=== PATIENT | female | born 1935 | race Caucasian/White ===

== ENCOUNTER 2016-10-04 18:38 | Inpatient (IN) | payer MEDICARE, OTHER ==
--- NOTE | ~2016-10-04 | DS ---
Discharge Summary [facility] [address] [place]. [address] NAME: FÉLIX PORTER : 34 STATUS : DIS IN PAT#: [id number] AGE: 81 ADM/REG DATE : 10/05/16 MR#: [id number] REPORT SERV DATE: 10/15/16 DICTATED BY: VINAY DICKINSON DATE: 10/14/16 REPORT STATUS : Draft TRANSCRIBED BY: MODL DATE: 10/14/16 ADMISSION DATE: 10/05/2016 DISCHARGE DATE: 10/14/2016 HOSPITAL COURSE: This is an 81-year-old female with known history of nonischemic cardiomyopathy, LVEF is now thought to be 45%; known history of nonobstructive CAD, defibrillator placed; hypertension; aortic stenosis; hyperlipidemia; history of subdural hematoma; and chronic anemia. The patient comes in not doing well for four days. Came in with prior to admission chest pain, palpitations, volume overload, BNP was 1100. The patient initially was on Vapotherm and was diuresed, Cardiology was consulted as a result. Seemed to have chronic hyponatremia, baseline is about 128. Noted to have progressive decline in functional status, hyponatremia, elevated BNP, and anemia. She, as a result, is seen regarding her chest pain to be left-sided, no pleurisy. Did well with euvolemia for IV diuresis. Her diuretics were held given increasingly hyponatremic. Urine sodium osmolality suggested SIADH. She is on 1.1 L fluid restriction by Nephrology. She was seen to have left retrocardiac infiltrate, procalcitonin is normal, do not suggest any infection. The patient clinically does not seem to have any pneumonia. 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 As a result, I will get a CT of the chest in four weeks to ensure the infiltrate in the retrocardiac region has resolved. She was seen by Dr. 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 The patient is now at baseline hyponatremia, a bit above her previous baseline of 133, likely had worsened hyponatremia due to volume overload from heart failure. As a result, would encourage the patient to discontinue medications that may cause iatrogenic SIADH. Pursue the CT of the chest, rule out for any lung-associated SIADH. Consider possible emphysema workup with pulmonary function test for the PCP. DISCHARGE MEDICATIONS: Will be Eliquis 5 p.o. b.i.d.; amiodarone 200 p.o. daily and 100 p.o. at bedtime; BuSpar 5 p.o. b.i.d.; carvedilol 25 p.o. b.i.d.; irbesartan 150 p.o. daily; Ativan 1 mg p.o. at bedtime, we will try to wean that down as an outpatient given addiction potential; magnesium oxide 400 p.o. daily; multivitamin one tablet p.o. daily; Megace 400 p.o. daily, this was given for appetite suppression issues initially; as well as KCl 10 mEq p.o. daily; Lasix 20 p.o. daily p.r.n. only for swelling given the risk of hyponatremia; artificial tears; and stop the Norvasc at home. CONSULTS: The patient had Cardiology, Nephrology, and Dr. Paz. Was evaluated for generalized anxiety disorder, obsessive-compulsive features. DISCHARGE DIAGNOSES: 1. Acute on chronic hyponatremia, likely due to syndrome of inappropriate antidiuretic hormone, contribution due to volume overload. 2. Nonischemic cardiomyopathy, acute on chronic heart failure, LVEF 45%, maximized on carvedilol and irbesartan at this point, fluid restriction. Discharge Summary [address] [address] NAME: FÉLIX PORTER : 34 STATUS : DIS IN PAT#: [id number] AGE: 81 ADM/REG DATE : 10/05/16 MR#: [id number] REPORT SERV DATE: 10/15/16 DICTATED BY: VINAY DICKINSON DATE: 10/14/16 REPORT STATUS : Draft TRANSCRIBED BY: HAMZAH DATE: 10/14/16 3. History of aortic stenosis. 4. Nonobstructive coronary artery disease. 5. Hypertension. All questions were answered, took well over 30 minutes to do. CHUN/HAMZAH Vinay Dickinson DO / [id number] CC: DO Laura Lamb D.O.
--- NOTE | ~2016-10-04 | CN ---
Consultation Report [facility] [address] [place]. [address] NAME: FÉLIX PORTER : 34 STATUS : ADM IN PAT#: [id number] AGE: 81 ADM/REG DATE : 10/05/16 MR#: [id number] REPORT SERV DATE: 10/05/16 DICTATED BY: ROBINSON OSBORNE DATE: 10/05/16 REPORT STATUS : Draft TRANSCRIBED BY: HAMZAH DATE: 10/05/16 CARDIOLOGY CONSULTATION DATE OF CONSULTATION: INDICATION: Fatigue, malaise, hyponatremia, diastolic heart failure. 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 She has persistent atrial fibrillation, hypertension, and a previous questionable subdural hematoma in 01/2016. She states she recently ended up in [facility] due to hospital bed availability issues, and she has recently been at the [facility] for rehabilitation. She states for the past several days, she has had increasing palpitations with breathlessness. She has had some atypical chest discomfort. At this time, she is relatively comfortable, but has significant laboratory abnormalities including a sodium of 127 and a BNP of 1155. CURRENT HOME MEDICATIONS: Amiodarone 200 in the morning, 100 in the evening; Norvasc 5 per day; Apixaban 5 b.i.d.; carvedilol 25 b.i.d.; clonidine 0.1 b.i.d.; furosemide 20 per day; irbesartan 150 per day; lorazepam 0.5 at bedtime; Mag-Ox 400 per day; multivitamins daily; potassium 20 per day. ALLERGIES OR INTOLERANCES: Penicillins. SOCIAL HISTORY: Negative for alcohol or tobacco use. FAMILY HISTORY: Negative for coronary artery disease at a young age. PAST MEDICAL HISTORY/REVIEW OF SYSTEMS: She has essential primary hypertension, hyperlipidemia. She has atherosclerosis of the [place] coronary arteries, but has not had angina in the past. She has mild aortic insufficiency, tricuspid regurgitation, as well as mild aortic sclerosis. These are nonrheumatic. She has a persistent atrial fibrillation, which has been well controlled on amiodarone. PHYSICAL EXAMINATION: GENERAL: An 81-year-old white female who is presently comfortable. VITAL SIGNS: Blood pressure 150/71, pulse 104 and regular, respirations 24. SKIN: No xanthelasmas. HEENT: She is normocephalic. There is no pallor. Sclerae white. NECK: JVD is not elevated. CHEST: There is more moderate kyphosis. There are no crackles. Consultation Report [place] [address] [facility] [place] [address] NAME: FÉLIX PORTER : 34 STATUS : ADM IN [facility]#: [id number] AGE: 81 ADM/REG DATE : 10/05/16 MR#: [id number] REPORT SERV DATE: 10/05/16 DICTATED BY: ROBINSON OSBORNE DATE: 10/05/16 REPORT STATUS : Draft TRANSCRIBED BY: HAMZAH DATE: 10/05/16 CARDIAC: PMI is not displaced. There is an S4. There is a 1/6 systolic ejection murmur. ABDOMEN: Soft. EXTREMITIES: Without edema. No clubbing. NEUROLOGIC: No focal deficits. LABORATORY DATA: Initial sodium 127, she has trended downward; in July, her sodium was in the upper 120s. Potassium 4.2, BUN 18, creatinine 0.65, magnesium 2, glucose 139. Cardiac enzymes negative. BNP 1155 compared to 264 in July of this year. White count 6.8; hemoglobin 9, which is down from 11.5 to 12 earlier this year. INR 1.4. IMPRESSION: Progressive decline in functional status with hyponatremia, elevated BNP, and an anemia. We will check her for any GI blood loss. May have to do further evaluation of her hyponatremia. MICAELA/HAMZAH Robinson Osborne M.D. / [id number] CC: Alton Beard Jr, MD
--- NOTE | ~2016-10-04 | HP ---
History And Physical [facility] [address] [place]. [address] NAME: FÉLIX GONZALEZ : 34 STATUS : ADM Ifrah PAT#: [id number] AGE: 81 ADM/REG DATE : 10/04/16 MR#: [id number] REPORT SERV DATE: 10/05/16 DICTATED BY: ARTEM PIMENTEL DATE: 10/05/16 REPORT STATUS : Draft TRANSCRIBED BY: MODL DATE: 10/05/16 DATE OF ADMISSION: 10/04/2016 CHIEF COMPLAINT: Chest pain, palpitations, and panic. HISTORY OF PRESENT ILLNESS: This is an 81-year-old female, who presents to the emergency room at [facility] with the above-mentioned complaint. History is obtained from the patient and reviewing data available on the [employer] system. According to Mrs. Gonzalez, she has been not doing well for about three to four days now with having chest pains and palpitations and panic when she tries to sleep or go to bed. Chest pain is mainly left-sided, 5/10 without any aggravating or relieving factors. She has no pleuritic pain. She denied any nausea, vomiting, or diaphoresis associated with this. No radiation. The pain usually lasts less than one minute. She finally decided to come to the emergency room to be evaluated. In the emergency room, initial workup revealed volume overload with nonischemic cardiomyopathy and chronic anemia as well. Hospitalist Service is asked to admit her for further evaluation and treatment. At the time of my evaluation, she denied any chest pain. She had no palpitations or orthopnea. She had no cough, hemoptysis, night sweats, or weight loss. She denied any recent falls or loss of consciousness. She has not had any recent fevers, chills, nausea, vomiting, or diarrhea. No other history of recent hematemesis, hematochezia, or hematuria. No dysuria. No other history of recent travel or exposures either. PAST MEDICAL HISTORY: Significant for nonischemic cardiomyopathy with preserved LV function, nonobstructive coronary artery disease. She also has a defibrillator placed. She has hypertension, aortic stenosis, hyperlipidemia, and history of subdural hematoma as well. She has chronic anemia as well. SOCIAL HISTORY: She does not smoke, drink, or use recreational drugs. She used to work in a [employer]. FAMILY HISTORY: Noncontributory. MEDICATIONS AT HOME: Reviewed by me in the chart today and reordered by me. REVIEW OF SYSTEMS: As in history of present illness. All other systems were reviewed in detail and are quite unremarkable. PHYSICAL EXAMINATION: GENERAL: This is a very pleasant 81-year-old, not in any acute distress. HEENT: Her head is atraumatic, normocephalic. She is alert, awake, oriented to time, place, and person. Her pupils are equal, reacting to light and accommodating. External ocular History And Physical [address] [place]. [address] NAME: FÉLIX GONZALEZ : 34 STATUS : ADM Ifrah PAT#: [id number] AGE: 81 ADM/REG DATE : 10/04/16 MR#: [id number] REPORT SERV DATE: 10/05/16 DICTATED BY: ARTEM PIMENTEL DATE: 10/05/16 REPORT STATUS : Draft TRANSCRIBED BY: HAMZAH DATE: 10/05/16 muscles are intact. Membranes are moist and pink. Sclerae are nonicteric. NECK: Supple with no jugular venous distention, lymphadenopathy, or thyromegaly. LUNGS: Auscultation of her lungs revealed decreased air entry bilaterally with bilateral crackles. No expiratory wheezes. Trachea appeared to be in midline. HEART: Auscultation of her heart revealed normal rate and rhythm with no murmurs, rubs, or gallops appreciated. ABDOMEN: Soft, nontender. Bowel sounds are present. EXTREMITIES: Showed no cyanosis, clubbing, or edema. NEUROLOGIC: Grossly intact. No focal deficits. She was able to move all four extremities. Higher functions appeared intact. VITAL SIGNS: Her temperature today upon arrival was 98.3, pulse was 103, respirations 24, and blood pressure upon arrival was 149/77. Oxygen saturations were 94%, requiring 8 L flow via Vapotherm. LABORATORY DATA: Reviewed by me on the [facility] today and she had an arterial blood gas showing a pH of 7.46, pCO2 was 34, PaO2 50, and bicarbonate was 23.4. This was on 4 L of oxygen. A CMP showed sodium of 127, potassium 3.8, chloride 89, and CO2 of 25. BUN was 19 with creatinine of 0.53 and blood glucose was 104. Her troponin was 0.02 today and BNP was elevated at 1155. CBC showed a white blood cell count of 10,300, hemoglobin was 9.7, hematocrit 28.2, and platelet count was 406,000. Her prothrombin time was 17.4 with an INR of 1.4 today. Urinalysis was grossly unremarkable. Films of the chest x-ray were reviewed by me on the PACS today and interpreted by me. Per my interpretation, there are bilateral pulmonary edema with left-sided effusion and compressive atelectasis as well. She has a left-sided ICD placed as well. Twelve-lead EKG done in the emergency room was reviewed and interpreted by me. There is ventricular paced rhythm. IMPRESSION: 1. Chest pain. 2. Hypoxemia. 3. Volume overload. 4. Nonischemic cardiomyopathy with preserved left ventricular function. 5. Nonobstructive coronary artery disease. 6. SECOND HELPER-D. 7. Hypertension. 8. Aortic stenosis. 9. Chronic anemia. 10.Hyperlipidemia. PLAN: We will admit Mrs. Gonzalez to the Hospitalist Service with cardiac telemetry for a 24- hour observation period. We will start her on IV diuretics for 24 hours and get an echocardiogram. We will consult Cardiology Service to see her as well. Meanwhile, we will go ahead and get TSH level follow serial troponins as well. She is on carvedilol, amiodarone, Eliquis, and clonidine, which will be continuing with the rest of her medications. We will also leave her on the Vapotherm 8 L per minute for now. Diurese her and then continue to titrate her FiO2 down as tolerated. Please see today's orders for all the details. I have discussed the above plans with the patient. Her questions were answered and she is agreeable to the above recommendations. History And Physical [address] [place]. [address] NAME: FÉLIX GONZALEZ : 34 STATUS : ADM Ifrah PAT#: [id number] AGE: 81 ADM/REG DATE : 10/04/16 MR#: [id number] REPORT SERV DATE: 10/05/16 DICTATED BY: ARTEM PIMENTEL DATE: 10/05/16 REPORT STATUS : Draft TRANSCRIBED BY: HAMZAH DATE: 10/05/16 Hospitalist Service will be following her during her stay here. MR/HAMZAH Artem Pimentel M.D. / [id number] CC: Alton Beard Jr, MD
--- NOTE | ~2016-10-04 | CN ---
Consultation Report [facility] [address] [place]. [address] NAME: FÉLIX PORTER : 34 STATUS : ADM IN PAT#: [id number] AGE: 81 ADM/REG DATE : 10/05/16 MR#: [id number] REPORT SERV DATE: 10/09/16 DICTATED BY: DATE: REPORT STATUS : Draft TRANSCRIBED BY: MODL DATE: 10/08/16 CONSULTATION DATE OF CONSULTATION: REASON FOR CONSULTATION: Hyponatremia. HISTORY OF PRESENT ILLNESS: This is a fairly pleasant 81-year-old female patient, who was initially admitted to the Hospitalist Service with volume overload, shortness of breath, anxiety, and chest pain. She was seen in consultation by Cardiology Services, we will follow the patient during this hospitalization as she stabilizes. She continued to show difficulty with hyponatremia. She was initially provided fluid restriction and IV diuresis and presented with much of a SIADH picture; however, has had persistent hyponatremia in previous hospitalizations, not here at [facility]. The patient has required dosing of Samsca by our service noted early in July 2016. Baseline sodium continues to be volatile and is at 125 this afternoon. She presents with no symptomatology related to hyponatremia; however, she is known to have a rather flat affect. The patient is lying in bed this afternoon. Awake, alert, and oriented. Denies current chest pain. No nausea, vomiting, or diarrhea. PAST MEDICAL HISTORY: Positive for chronic hyponatremia, nonischemic cardiomyopathy with last known ejection fraction 07/27/2016 with demonstrated preserved left ventricular systolic function. Also known to have nonobstructive coronary artery disease, history of MAIL PROCESSING CLERK-D, hypertension, persistent atrial fibrillation with CHADS-VASc score 4, aortic sclerosis, history of subdural hematoma, hyperlipidemia, and chronic anemia. REVIEW OF SYSTEMS: Completed. Please see HPI for pertinent details. SOCIAL HISTORY: No ETOH. No illicit drugs. No tobacco. FAMILY HISTORY: Noncontributory and not reviewed during this consultation and dictation. ALLERGIES: SHE LISTS ALLERGIES TO PENICILLIN, ACTIVELY ON CORDARONE, NORVASC, ELIQUIS, COREG, CATAPRES, AVAPRO, ATIVAN, MAG-OX, TABLETS, POTASSIUM CHLORIDE, ZOLOFT, AND ANTIEMETIC, ANTIPAIN, AND ANTI-NAUSEA MEDICATION. PHYSICAL EXAMINATION: VITAL SIGNS: Blood pressure 169/56, temperature 97.1, respiratory rate 18, heart rate is 78 beats per minute. GENERAL: She is a very flat affect female patient, lying in bed during evaluation, in no acute distress. HEENT: Normocephalic and atraumatic. Normal ocular movements. No scleral icterus. No conjunctival pallor is appreciated. Consultation Report [address] [place]. [address] NAME: FÉLIX PORTER : 34 STATUS : ADM IN [facility]#: [id number] AGE: 81 ADM/REG DATE : 10/05/16 MR#: [id number] REPORT SERV DATE: 10/09/16 DICTATED BY: DATE: REPORT STATUS : Draft TRANSCRIBED BY: MODJosh DATE: 10/08/16 NECK: Supple without thyromegaly. No JVD or mass. CHEST: Shows positive S1 and S2. No rubs or gallops. LUNGS: Diminished but clear to auscultation throughout. Normal expansion and effort bilaterally. GI: Shows positive bowel sounds in all four quadrants. No appreciable mass or tenderness. : Deferred. EXTREMITIES: Show positive pulses. No clubbing, cyanosis, or edema. SKIN: Warm, dry, and intact to visualized surfaces. No rash, lesions, or ecchymosis. NEUROLOGIC: She appears to be grossly intact. Nonfocal. She is of a flat affect and she is of appropriate however. LABORATORY DATA: Pertinent laboratories and imaging to this evaluation, electrolyte profile: Sodium 125, potassium 4.2, chloride 92, CO2 of 27, BUN 18, creatinine 0.55, reflected GFR 87 mL per minute, glucose 101, calcium 8.3, serum osmolality 264. Urine osmolality and urine sodium at 545 and 28 respectively. IMPRESSION AND PLAN: This is an 81-year-old female patient, admitted with complaints as listed above in HPI with persistent hyponatremia with fluid restrictions in place with aggressive diuresis on entry with pattern of volume overload. Overall, the patient appears to be somewhat dry and does not exhibit pattern of overload. She was recently initiated on Zoloft by Dr. Jake Paz during this inpatient stay. This along with other factors including her tendency toward chronic hyponatremia may be precipitating a worsening hyponatremia currently. We would advise at this point to continue her fluid restrictions in place, place her at 1100 mL fluid restriction daily. Repeat her portable chest x-ray to assess her fluid status as she was volume overloaded on entry and repeat urine sodium and other studies. Would consider dosing of Samsca if the patient continues to present with hyponatremia if all other factors are mitigated. Follow along with serial laboratories strict I's and Os daily weights and modify treatment plan based on clinical presentation, the patient laboratory results, further consultation with renal attending. We appreciate consultation. We are glad to follow. /HAMZAH Rajan Jones NP / [id number] CC: Alton Beard Jr, MD Ivey Williamson, M.D.
--- NOTE | ~2016-10-04 | CN ---
Consultation Report [facility] [address] [place]. [address] NAME: FÉLIX PORTER : 34 STATUS : ADM IN PAT#: [id number] AGE: 81 ADM/REG DATE : 10/05/16 MR#: [id number] REPORT SERV DATE: 10/06/16 DICTATED BY: JAKE LANE DATE: 10/06/16 REPORT STATUS : Draft TRANSCRIBED BY: MODL DATE: 10/06/16 PSYCHIATRIC CONSULTATION DATE OF CONSULTATION: 10/06/2016 I reviewed the patient's old and current medical record. I discussed the patient's status with Dr. Beard. I discussed the patient's history with her son who was at the bedside. HISTORY OF PRESENT ILLNESS: She was admitted with chest pain, palpitations, and feelings of panic, on and off for a few days and mainly occurring when she tried to go to bed and go to sleep. She reports that she has had very little sleep in recent days. PAST PSYCHIATRIC HISTORY: She was always an anxious worrier. She always was anxiety driven and somewhat hyperactive. She also had some compulsive traits especially to her cleaning and general house keeping. She said she has had a problem with mixed insomnia for years but this really became problematic only in recent months. She took Ambien, with some, inconsistent benefit. Subsequently, she had a trial on Desyrel which caused confusion and misperceptions. Next, she was put on Ativan 0.5 mg at bedtime and this was the most beneficial medication but it was not consistently so. FAMILY HISTORY: No psychiatric illness. SOCIAL HISTORY: She has been for a number of years. She lives alone. MENTAL STATUS: She was awake and alert. She made only brief eye contact. Her mood was anxious and somewhat angry. Her affect was appropriate. She was obsessing about her need for sleep and for getting some medication right now to remedy this. Her thinking was logical. She had no delusions. She had no hallucinations. She was oriented to time, place, and person. DIAGNOSIS: Generalized anxiety disorder, with obsessive-compulsive features. RECOMMENDATIONS: I will start her on Ativan 1 mg p.o. at bedtime and Zoloft 25 mg p.o. daily. I will follow during this hospitalization. JOSIAS/HAMZAH Jake Lane M.D. / [id number] Consultation Report [place] [address] [place]. [address] NAME: FÉLIX PORTER : 34 STATUS : ADM IN PAT#: [id number] AGE: 81 ADM/REG DATE : 10/05/16 MR#: [id number] REPORT SERV DATE: 10/06/16 DICTATED BY: JAKE LANE DATE: 10/06/16 REPORT STATUS : Draft TRANSCRIBED BY: MODL DATE: 10/06/16 CC: Alton Beard Jr, MD Selma Acevedo M.D.
--- NOTE | ~2016-10-04 | IDS ---
Interim Discharge Summary [facility] [address] [place]. [address] NAME: FÉLIX PORTER : 34 STATUS : ADM IN PAT#: [id number] AGE: 81 ADM/REG DATE : 10/05/16 MR#: [id number] REPORT SERV DATE: 10/09/16 DICTATED BY: JR. BEARD WILLIAM JOHN DATE: 10/09/16 REPORT STATUS : Draft TRANSCRIBED BY: MODJosh DATE: 10/09/16 ADMISSION DATE: 10/05/2016 DISCHARGE DATE: Date of summary is 10/09/2016. This summary covers the time period from 10/05/2016 through 10/09/2016. WORKING DIAGNOSIS: Include 1. Acute versus acute on chronic hyponatremia likely secondary to syndrome of inappropriate antidiuretic hormone. 2. Fluid overload. 3. Generalized anxiety with obsessive-compulsive features. 4. Nonischemic cardiomyopathy with ejection fraction 45%. 5. Nonobstructive coronary artery disease. 6. Hypertension. 7. History of aortic stenosis. 8. Deconditioning. 9. Left retrocardiac infiltrate, infectious versus fluid. OPERATIONS, PROCEDURES, AND TREATMENTS: Include 1. Chest x-ray done 10/04/2016, which showed severe diffuse bilateral pulmonary infiltrates, cardiomegaly. 2. Repeat chest x-ray done 10/09/2016, which showed improved pulmonary aeration with resolving right perihilar infiltrates. There was persistent left basilar consolidation which was retrocardiac. 3. Blood cultures x2 done 10/04/2016, were sterile at four days. CONSULTING PHYSICIANS: Include Dr. Osborne of Cardiology, Dr. Paz of Psychiatry, and Nephrology. CURRENT MEDICATIONS: Please see today's progress note. HOSPITAL COURSE: Briefly, the patient is an 81-year-old female, who presented to [facility] emergency room 10/04/2016, with chest pain, palpitations, and panic. She was seen by Dr. Jansen. Please see his note for complete details. The patient reportedly had been doing poorly for 3 to 4 days with chest pain and palpitations. The chest pain was mainly left-sided without aggravating or alleviating factors. There was no pleuritic component. She denied nausea, vomiting, or diaphoresis. Initial exam and workup was remarkable for decreased air entry bilaterally in the lungs with bilateral wheezes. Her temperature is 98.3, heart rate 103, respiratory rate 24, blood pressure 149/77, and saturation was 94% on 8 L nasal cannula. Initial laboratory was significant for a BUN and creatinine of 19 and 0.5. Sodium 127. Troponin was 0.02. B-type natriuretic peptide was 1155. Initial arterial blood gas showed a pH of 7.46, pCO2 of 34, and PO2 of 50. Chest x-ray as detailed above. Interim Discharge Summary [facility] [address] [place]. [address] NAME: FÉLIX PORTER : 34 STATUS : ADM IN PAT#: [id number] AGE: 81 ADM/REG DATE : 10/05/16 MR#: [id number] REPORT SERV DATE: 10/09/16 DICTATED BY: JR. BEARD WILLIAM JOHN DATE: 10/09/16 REPORT STATUS : Draft TRANSCRIBED BY: HAMZAH DATE: 10/09/16 The patient is admitted to [facility]. She was seen in consultation by Dr. Osborne. She underwent IV diuresis initially with fair diuresis and improvement in her oxygen requirements. The patient became increasingly hyponatremic. Her diuretics as well as any fluid was withheld for 12 hours. Urinary sodium and osmolality as well as serum osmolarity were measured. 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 She was placed on a 1.2 L fluid restriction without change in her sodium level. The patient was subsequently seen by Nephrology who agreed this is likely SIADH, they reduced the fluid restriction to 1.1 L fluid restriction and her sodium is again the same at 124. Nephrology feels there may be a component of a reset Osmostat and this may be chronic for this patient. Repeat chest x-ray showed improvement in the fluid overload pattern. There was still a left retrocardiac infiltrate. There is no evidence this is infectious; however, we will go ahead and check a procalcitonin in the morning. Regarding the patient's anxiety, the patient is perseverate terribly particularly about sleep. She was seen in consultation by Dr. Paz who feels she has an obsessive- compulsive component to a generalized anxiety disorder. She was initially placed on Zoloft as well as Ativan at the hour of sleep. The patient seems to function on this. Given her hyponatremia, the Zoloft was discontinued and she continues with Ativan 1 mg at the hour of sleep. Regarding the patient's deconditioning, she is followed by Physical Therapy, and I discussed this with the patient and her family. The goal is discharge to the [facility] in [facility]. We will have case management work on this. For exam and laboratory, please see daily progress note. WJF/MODL Alton Beard Jr, MD / [id number] CC: Alton Beard Jr, MD Ivey Williamson, M.D.
[~2016-10-04 18:38] MED LIST: AMB5 PO; AVAP150 PO; BENTYL10 PO; CAT1 PO; CIP5 PO; CO Q-10100 MG PO; CORDARONE PO; COREG25 PO; ELIQUIS 5 MG TAB5 MG PO; FENOGLIDE120 MG PO; HYPOTEARS OPH; JANTOVEN2 MG PO; JANTOVEN4 MG PO; KLOR-CON M2020 MEQ PO; LAN25 PO; LASIX PO; LIPITOR20 PO; LIPITOR40 PO; LOFIBRA200 MG PO; LOM PO; MAGOX4 PO; MULTIPLE VIT PO; MULTIVITAMI1 PO; NORV5 PO; OS500+D PO; PACERONE100 MG PO; POTASSIUM PO; PR25 PO; PREM625 PO; ULTRAM50 PO; VITAMIN B-121000 MC1 SL; WELCHOL 625 MG625 MG PO; ZOCOR20 PO
[2016-10-04 19:55] LABS: BASOPHILS 0.2 %; BASOPHILS ABSOLUTE 0.02 10/3/uL (0.0-0.16); EOSINOPHILS 0.1 %; EOSINOPHILS ABSOLUTE 0.01 10/3/uL (0.0-0.53); ER CBC TAT 0 Hrs 09 Mins; HEMATOCRIT 28.2 % (36.0-48.0); HEMOGLOBIN 9.7 g/dL (12.0-16.0); IMMATURE GRANULOCYTES 0.5 %; IMMATURE GRANULOCYTES ABSOLUTE 0.05 10/3/uL (0.0-0.11); LYMPHOCYTES 12.4 %; LYMPHOCYTES ABSOLUTE 1.28 10/3/uL (0.67-4.30); MANUAL DIFF NO %; MEAN CORPUS HGB CONC 34.4 g/dL (32.0-36.0); MEAN CORPUSCULAR VOLUME 84.2 fL (80-100); MEAN PLATELET VOLUME 9.1 fL (9.2-13.0); MONOCYTES 9.2 %; MONOCYTES ABSOLUTE 0.95 10/3/uL (0.21-1.20); NEUTROPHILS 77.6 %; NEUTROPHILS ABSOLUTE 8.03 10/3/uL (2.02-8.40); PLATELET COUNT 406 10/3/uL (150-400); RBC DISTRIBUTION WIDTH 13.3 % (12.0-16.0); RED CELL COUNT 3.35 10/6/uL (4.0-5.6); WHITE BLOOD CELLS 10.3 10/3/uL (4.5-10.5)
[2016-10-04 20:02] LABS: INTERNATIONAL NORMAL RATI 1.4 UNITS (-); PARTIAL THROMBO TIME 41.4 SEC (22.5-37.2); PROTIME (NOT ORD) 17.4 SEC (12.0-14.5)
[2016-10-04 20:15] LABS: BUN (BLOOD UREA NITROGEN) 19 MG/DL (6-23); CALCIUM, SERUM 8.9 MG/DL (8.5-10.4); CHEST PAIN PROFILE TAT 0 Hrs 29 Mins; CHLORIDE, SERUM 89 MMOL/L (96-112); CO2 (CARBON DIOXIDE) 25 MMOL/L (24-34); CREATININE 0.53 MG/DL (0.55-1.02); GFR AFRICAN AMERICAN 102 ML/MIN (>=60); GFR NON AFRICAN AMERICAN 88 ML/MIN (>=60); GLUCOSE, SERUM 104 MG/DL (60-99); POTASSIUM, SERUM 3.8 MMOL/L (3.5-5.3); SODIUM, SERUM 127 MMOL/L (135-148); TROPONIN I <0.02 NG/ML (<0.05)
[2016-10-04 20:23] LABS: CARBOXYHEMOGLOBIN 2.3 % (0-3); DEVICE NC; HCO3 (ACTUAL BICARBONATE) 23.4 MEQ/L (23-27); INSTRUMENT SERIAL # 8087; METHEMOGLOBIN 0.2 % (0-3); O2 CONTENT 11.5 VOL% (18-24); PCO2 (CO2 TENSION) 34 MMHG (35-45); PO2 (O2 TENSION) 50 MMHG (79-93); SAMPLE Arterial; pH 7.46 (7.37-7.43)
[2016-10-04] MEDS ORDERED: ATV.5 PO (21:31)
[2016-10-04] MEDS ORDERED: L20 PO (21:33)
[2016-10-05 04:32] LABS: BASOPHILS 0.1 %; BASOPHILS ABSOLUTE 0.01 10/3/uL (0.0-0.16); EOSINOPHILS 0 %; HEMATOCRIT 26.9 % (36.0-48.0); IMMATURE GRANULOCYTES 0.3 %; IMMATURE GRANULOCYTES ABSOLUTE 0.02 10/3/uL (0.0-0.11); LYMPHOCYTES ABSOLUTE 0.54 10/3/uL (0.67-4.30); MEAN CORPUS HGB CONC 33.5 g/dL (32.0-36.0); MEAN CORPUSCULAR HEMOGLOB 28.5 pg (26.0-34.0); MEAN CORPUSCULAR VOLUME 85.1 fL (80-100); MEAN PLATELET VOLUME 9.3 fL (9.2-13.0); MONOCYTES 1.5 %; NEUTROPHILS 90.1 %; NEUTROPHILS ABSOLUTE 6.09 10/3/uL (2.02-8.40); PLATELET COUNT 337 10/3/uL (150-400); RBC DISTRIBUTION WIDTH 13.4 % (12.0-16.0); RED CELL COUNT 3.16 10/6/uL (4.0-5.6); WHITE BLOOD CELLS 6.8 10/3/uL (4.5-10.5)
[2016-10-05 04:41] LABS: MANUAL DIFF NO %
[2016-10-05 04:46] LABS: ASCORBIC ACID (UR NOT ORDER) NEG (NEG); BILIRUBIN, URINE NEGATIVE (NEG); KETONE, URINE NEGATIVE (NEG); LEUKOCYTE ESTERASE(NOT OR NEG (NEG); WBC (NOT ORDERED) (RFLEX) 2 (0-5)
[2016-10-05 04:56] LABS: BUN (BLOOD UREA NITROGEN) 18 MG/DL (6-23); CALCIUM, SERUM 8.7 MG/DL (8.5-10.4); CHLORIDE, SERUM 89 MMOL/L (96-112); CO2 (CARBON DIOXIDE) 28 MMOL/L (24-34); CREATININE 0.65 MG/DL (0.55-1.02); GFR AFRICAN AMERICAN 96 ML/MIN (>=60); GFR NON AFRICAN AMERICAN 83 ML/MIN (>=60); PHOSPHORUS, SERUM 4.1 MG/DL (2.5-4.5); POTASSIUM, SERUM 4.2 MMOL/L (3.5-5.3); SODIUM, SERUM 128 MMOL/L (135-148); TROPONIN I <0.02 NG/ML (<0.05)
[2016-10-05 04:57] LABS: GLUCOSE, SERUM 139 MG/DL (60-99)
[2016-10-06 05:22] LABS: BUN (BLOOD UREA NITROGEN) 24 MG/DL (6-23); CALCIUM, SERUM 8.5 MG/DL (8.5-10.4); CHLORIDE, SERUM 93 MMOL/L (96-112); CO2 (CARBON DIOXIDE) 27 MMOL/L (24-34); CREATININE 0.73 MG/DL (0.55-1.02); GFR AFRICAN AMERICAN 89 ML/MIN (>=60); GFR NON AFRICAN AMERICAN 77 ML/MIN (>=60); GLUCOSE, SERUM 116 MG/DL (60-99); POTASSIUM, SERUM 4.1 MMOL/L (3.5-5.3); SODIUM, SERUM 129 MMOL/L (135-148)
[2016-10-07 06:33] LABS: SODIUM, URINE 28 MEQ/L
[2016-10-07 06:35] LABS: OSMOLALITY, URINE 545 MOSM/KG (50-1200)
[2016-10-07 07:01] LABS: ALBUMIN 2.6 G/DL (3.5-5.0); BUN (BLOOD UREA NITROGEN) 21 MG/DL (6-23); CALCIUM, SERUM 8.1 MG/DL (8.5-10.4); CHLORIDE, SERUM 89 MMOL/L (96-112); CO2 (CARBON DIOXIDE) 29 MMOL/L (24-34); CREATININE 0.61 MG/DL (0.55-1.02); GFR AFRICAN AMERICAN 98 ML/MIN (>=60); GFR NON AFRICAN AMERICAN 84 ML/MIN (>=60); GLUCOSE, SERUM 89 MG/DL (60-99); SODIUM, SERUM 126 MMOL/L (135-148)
[2016-10-08 05:06] LABS: BUN (BLOOD UREA NITROGEN) 18 MG/DL (6-23); CALCIUM, SERUM 8.3 MG/DL (8.5-10.4); CHLORIDE, SERUM 92 MMOL/L (96-112); CO2 (CARBON DIOXIDE) 27 MMOL/L (24-34); CREATININE 0.55 MG/DL (0.55-1.02); GFR AFRICAN AMERICAN 101 ML/MIN (>=60); GFR NON AFRICAN AMERICAN 87 ML/MIN (>=60); GLUCOSE, SERUM 101 MG/DL (60-99); POTASSIUM, SERUM 4.2 MMOL/L (3.5-5.3); SODIUM, SERUM 125 MMOL/L (135-148)
[2016-10-08 18:43] LABS: SODIUM, URINE 43 MEQ/L; UREA NITROGEN (RANDOM UR) 871 MG/DL
[2016-10-08 19:14] LABS: OSMOLALITY, URINE 551 MOSM/KG (50-1200)
[2016-10-09 07:20] LABS: ALBUMIN 2.7 G/DL (3.5-5.0); BUN (BLOOD UREA NITROGEN) 11 MG/DL (6-23); CALCIUM, SERUM 8.3 MG/DL (8.5-10.4); CHLORIDE, SERUM 88 MMOL/L (96-112); CO2 (CARBON DIOXIDE) 26 MMOL/L (24-34); CREATININE 0.48 MG/DL (0.55-1.02); GFR AFRICAN AMERICAN 106 ML/MIN (>=60); GFR NON AFRICAN AMERICAN 91 ML/MIN (>=60); GLUCOSE, SERUM 89 MG/DL (60-99); PHOSPHORUS, SERUM 2.8 MG/DL (2.5-4.5); POTASSIUM, SERUM 4.3 MMOL/L (3.5-5.3); SODIUM, SERUM 124 MMOL/L (135-148)
[2016-10-09 11:30] LABS: OSMOLALITY, URINE 531 MOSM/KG (50-1200)
[2016-10-09 11:32] LABS: SODIUM, URINE 59 MEQ/L; UREA NITROGEN (RANDOM UR) 640 MG/DL
[2016-10-10 05:52] LABS: ALBUMIN 2.8 G/DL (3.5-5.0); BUN (BLOOD UREA NITROGEN) 14 MG/DL (6-23); CALCIUM, SERUM 8.7 MG/DL (8.5-10.4); CO2 (CARBON DIOXIDE) 27 MMOL/L (24-34); GFR AFRICAN AMERICAN 94 ML/MIN (>=60); GFR NON AFRICAN AMERICAN 81 ML/MIN (>=60); GLUCOSE, SERUM 91 MG/DL (60-99); POTASSIUM, SERUM 4.5 MMOL/L (3.5-5.3); SODIUM, SERUM 134 MMOL/L (135-148)
[2016-10-10 05:53] LABS: CHLORIDE, SERUM 98 MMOL/L (96-112)
[2016-10-10 06:38] LABS: PROCALCITONIN <0.05 ng/mL (<0.5)
[2016-10-11 05:41] LABS: BASOPHILS 0.2 %; BASOPHILS ABSOLUTE 0.01 10/3/uL (0.0-0.16); EOSINOPHILS 2.8 %; EOSINOPHILS ABSOLUTE 0.15 10/3/uL (0.0-0.53); HEMOGLOBIN 8.4 g/dL (12.0-16.0); IMMATURE GRANULOCYTES 0.6 %; IMMATURE GRANULOCYTES ABSOLUTE 0.03 10/3/uL (0.0-0.11); LYMPHOCYTES 22.3 %; LYMPHOCYTES ABSOLUTE 1.21 10/3/uL (0.67-4.30); MEAN CORPUSCULAR HEMOGLOB 29.7 pg (26.0-34.0); MEAN CORPUSCULAR VOLUME 84.8 fL (80-100); MEAN PLATELET VOLUME 8.7 fL (9.2-13.0); MONOCYTES 10.3 %; MONOCYTES ABSOLUTE 0.56 10/3/uL (0.21-1.20); NEUTROPHILS 63.8 %; NEUTROPHILS ABSOLUTE 3.47 10/3/uL (2.02-8.40); PLATELET COUNT 324 10/3/uL (150-400); RBC DISTRIBUTION WIDTH 13.3 % (12.0-16.0); RED CELL COUNT 2.83 10/6/uL (4.0-5.6); RETICULOCYTE COUNT 2.6 % (0.5-2.5); RETICULOCYTE COUNT ABSOLUTE 72.4 10/3/uL (20.2-119.8); WHITE BLOOD CELLS 5.4 10/3/uL (4.5-10.5)
[2016-10-11 05:47] LABS: MANUAL DIFF NO %
[2016-10-11 06:00] LABS: % IRON SAT 8 % (20-50); CALCIUM, SERUM 8.4 MG/DL (8.5-10.4); CHLORIDE, SERUM 100 MMOL/L (96-112); CO2 (CARBON DIOXIDE) 27 MMOL/L (24-34); FERRITIN 92 NG/ML (8-252); GFR AFRICAN AMERICAN 94 ML/MIN (>=60); GFR NON AFRICAN AMERICAN 81 ML/MIN (>=60); GLUCOSE, SERUM 94 MG/DL (60-99); IRON BINDING CAPACITY 279 MCG/DL (225-410); IRON, SERUM 23 MCG/DL (35-150); POTASSIUM, SERUM 4.6 MMOL/L (3.5-5.3); SODIUM, SERUM 137 MMOL/L (135-148)
[2016-10-11 06:04] LABS: BUN (BLOOD UREA NITROGEN) 18 MG/DL (6-23)
[2016-10-14 08:18] LABS: BASOPHILS 1.4 %; BASOPHILS ABSOLUTE 0.09 10/3/uL (0.0-0.16); EOSINOPHILS ABSOLUTE 0.13 10/3/uL (0.0-0.53); HEMATOCRIT 27.7 % (36.0-48.0); HEMOGLOBIN 9.4 g/dL (12.0-16.0); IMMATURE GRANULOCYTES 0.6 %; IMMATURE GRANULOCYTES ABSOLUTE 0.04 10/3/uL (0.0-0.11); LYMPHOCYTES 26.1 %; LYMPHOCYTES ABSOLUTE 1.67 10/3/uL (0.67-4.30); MANUAL DIFF NO %; MEAN CORPUS HGB CONC 33.9 g/dL (32.0-36.0); MEAN CORPUSCULAR HEMOGLOB 28.8 pg (26.0-34.0); MEAN PLATELET VOLUME 8.4 fL (9.2-13.0); MONOCYTES 10.6 %; MONOCYTES ABSOLUTE 0.68 10/3/uL (0.21-1.20); NEUTROPHILS 59.3 %; NEUTROPHILS ABSOLUTE 3.79 10/3/uL (2.02-8.40); PLATELET COUNT 347 10/3/uL (150-400); RBC DISTRIBUTION WIDTH 13.4 % (12.0-16.0); RED CELL COUNT 3.26 10/6/uL (4.0-5.6); WHITE BLOOD CELLS 6.4 10/3/uL (4.5-10.5)
[2016-10-28] MEDS ORDERED: KDUR10 PO (02:40)
[2016-10-28] MEDS ORDERED: MAGOX4 PO (02:40)
[2016-10-28] MEDS ORDERED: MEGACEUDL PO (02:40)
[2016-10-28] MEDS ORDERED: MULTIVIT/MIN PO (02:40)
[2016-10-28] MEDS ORDERED: ELIQUIS 5 MG TAB5 MG PO (02:41)
[2016-10-28] MEDS ORDERED: AVAP150 PO (02:41)
[2016-10-28] MEDS ORDERED: PACERONE200 MG PO (02:41)
[2016-10-28] MEDS ORDERED: ATV1 PO (02:42)
[2016-10-28] MEDS ORDERED: COREG25 PO (02:42)
[2016-10-28] MEDS ORDERED: BUSPAR5 PO (02:42)
[2016-10-28] MEDS ORDERED: PACERONE100 MG PO (02:42)
[2016-10-28] MEDS ORDERED: BARRIER CREAM TOP (02:43)
[2016-10-28] MEDS ORDERED: BISR PR (02:44)
[2016-10-28] MEDS ORDERED: MOMUD PO (02:44)
[2016-10-28] MEDS ORDERED: GENTEAL 15 ML O15 ML OPH (02:44)
[2016-10-28] MEDS ORDERED: L20 PO (02:44)
[2017-03-07] MEDS ORDERED: CORDARONE PO (21:05)
[2017-03-07] MEDS ORDERED: COREG25 PO (21:05)
[2017-03-07] MEDS ORDERED: BUSPAR5 PO (21:05)
[2017-03-07] MEDS ORDERED: KLONOPIN WAF0.25 MG PO (21:05)
[2017-03-07] MEDS ORDERED: D.O.S.100 MG PO (21:06)
[2017-03-07] MEDS ORDERED: AVAP150 PO (21:06)
[2017-03-07] MEDS ORDERED: L20 PO ×2 (21:06→21:12)
[2017-03-07] MEDS ORDERED: LEXAPRO5 MG PO (21:06)
[2017-03-07] MEDS ORDERED: MAGOX4 PO (21:07)
[2017-03-07] MEDS ORDERED: MIRALAX POWDER1 PKT PO (21:07)
[2017-03-07] MEDS ORDERED: XARELTO20 MG PO (21:08)
[2017-03-07] MEDS ORDERED: KDUR10 PO (21:08)
[2017-03-07] MEDS ORDERED: CENTRUM PO (21:08)
[2017-03-07] MEDS ORDERED: X5 PO (21:09)
[2017-03-07] MEDS ORDERED: ALBUTEROL0.083 % INH (21:09)
[2017-03-07] MEDS ORDERED: BION TEARS OPH (21:10)
[2017-03-07] MEDS ORDERED: BAZA CREAM TOP (21:10)
[2017-03-07] MEDS ORDERED: BISR PR (21:11)
[2017-03-07] MEDS ORDERED: MOMUD PO (21:12)
[2017-03-07] MEDS ORDERED: ZOFRAN4 PO (21:12)
== END 2016-10-14 13:34 | DRG 643 ==
LOC: ER 18:38 → CDU1 22:01 → CDU2 22:50 → 1SO 10-05 13:34
PROVIDERS: Emergency Medicine; Internal Medicine; Internal Medicine Clinical Cardiac Electrophysiology; Internal Medicine Infectious Disease; Psychiatry & Neurology Psychiatry; Registered Nurse
DX: E22.2 Syndrome of inappropriate secretion of antidiuretic hormone (principal); I50.23 Acute on chronic systolic (congestive) heart failure; I42.8 Other cardiomyopathies; I48.1 Persistent atrial fibrillation; I25.10 Atherosclerotic heart disease of native coronary artery without angina pectoris; E78.5 Hyperlipidemia, unspecified; I35.0 Nonrheumatic aortic (valve) stenosis; R09.02 Hypoxemia; I11.0 Hypertensive heart disease with heart failure; F41.1 Generalized anxiety disorder; F32.9 Major depressive disorder, single episode, unspecified; I36.1 Nonrheumatic tricuspid (valve) insufficiency; D50.9 Iron deficiency anemia, unspecified; R63.0 Anorexia; E86.1 Hypovolemia; R62.7 Adult failure to thrive; Z79.899 Other long term (current) drug therapy; Z79.01 Long term (current) use of anticoagulants; Z95.810 Presence of automatic (implantable) cardiac defibrillator; Z91.81 History of falling; Z88.0 Allergy status to penicillin
CPT/HCPCS: 36600; 71010; 80048; 80069; 81001; 82728; 82805; 83540; 83550; 83735; 83880; 83930; 83935; 84100; 84145; 84295; 84300; 84443; 84484; 84540; 85025; 85045; 85610; 85730; 87040; 87449; 93005; 94640; 96374; 96375; 97116-GP; 97161-GP; 97166-GO; 97535-GO; 99291; A9270-GY; G8978-CK-GP; G8979-CJ-GP; G8987-CJ-GO; G8988-CI-GO; J1750; J1940; J2405; J2930

== ENCOUNTER 2016-11-03 21:45 | Inpatient (IN) | payer MEDICARE, OTHER ==
--- NOTE | ~2016-11-03 | HP ---
History And Physical [facility] [id number] [place]. [address] NAME: FÉLIX PORTER : 34 STATUS : ADM IN [facility]#: [id number] AGE: 81 ADM/REG DATE : 11/04/16 MR#: [id number] REPORT SERV DATE: 11/04/16 DICTATED BY: LISSETH MCGOWAN DATE: 11/04/16 REPORT STATUS : Draft TRANSCRIBED BY: MODL DATE: 11/04/16 DATE OF ADMISSION: 11/04/2016 CHIEF COMPLAINT: 81-year-old female presenting with shortness of breath. HISTORY OF PRESENT ILLNESS: The patient's history was obtained through careful interview with the patient and son coupled with review of [facility] and [facility] medical records. The patient just on the night leading up to admission, she began to develop progressive severe shortness of breath characterized by dyspnea on exertion. She describes a cough productive of clear sputum. She developed some chest discomfort mostly in the left side of her chest, a deep aching quality, but only described as a 2/10 severity. She has had nausea, but no vomiting. No fevers or chills. No lightheadedness. The son reports the patient has had multiple episodes such as this, she will develop rapid onset shortness of breath with hypoxia, and has been hospitalized previously at [facility], and possibly some other facility needing to be placed on BiPAP, but then rapidly improving with supportive care. She is uncertain of a clear diagnosis for why she will develop such rapid respiratory failure. While in the emergency department, she progressed in her shortness of breath with increasing respiratory rate going from the 20s up to the 40s. Her initial O2 saturation was 91% on room air, but then had to be on 92% on 4 L, but then eventually was 86% on non-rebreather, and had to be placed on BiPAP. REVIEW OF SYSTEMS: Otherwise 14-point review of systems was obtained and was negative. PAST MEDICAL HISTORY: 1. Systolic congestive heart failure. Ejection fraction of 45%. Negative catheterization of the heart in 2003. 2. Atrial fibrillation seen by Dr. Osborne. 3. Left bundle-branch block. 4. AICD placement. 5. Dementia. 6. Anxiety with OCD. 7. Breast cancer. 8. DVT. 9. Aortic stenosis. 10.Subdural hematoma in 2014 with residual right-sided encephalomalacia. 11.Colon polyps seen by Dr. Singh. 12.Pneumonia. History And Physical [facility] [address] [place]. [address] NAME: FÉLIX PORTER : 34 STATUS : ADM IN [facility]#: [id number] AGE: 81 ADM/REG DATE : 11/04/16 MR#: [id number] REPORT SERV DATE: 11/04/16 DICTATED BY: LISSETH MCGOWAN DATE: 11/04/16 REPORT STATUS : Draft TRANSCRIBED BY: HAMZAH DATE: 11/04/16 PAST SURGICAL HISTORY: 1. AICD placement. 2. Appendectomy. 3. Hysterectomy. 4. Partial colectomy with adenoma. 5. Hemorrhoidectomy. ALLERGIES: PENICILLIN, GEMFIBROZIL, LEVAQUIN, AND VASOTEC. CODE STATUS: Limited. SOCIAL HISTORY: No tobacco abuse. No alcohol abuse. Lives in [place], [place], has been a since 1984. Used to work in [employer]. She now resides at the [facility]. FAMILY HISTORY: Mother with breast cancer. Siblings with lung cancer. A strong family history of heart disease. CURRENT MEDICATIONS: Include amiodarone 200 mg p.o. b.i.d., Eliquis 5 mg p.o. b.i.d., Dulcolax, BuSpar 5 mg p.o. b.i.d., Coreg 25 mg p.o. b.i.d., Klonopin 0.25 mg p.o. b.i.d., Lasix 20 mg p.o. daily, Avapro 150 mg daily, Ativan 1 mg at bedtime, magnesium 400 mg p.o. daily, Megace 400 mg daily, Milk of Magnesia, multivitamin, and potassium 10 mEq p.o. daily. PHYSICAL EXAMINATION: VITAL SIGNS: Temperature 98.8, pulse 71, blood pressure 168/75, respiratory rate 21, and O2 saturation 86% on non-rebreather. GENERAL: An ill-appearing female, in evidence of distress secondary to shortness of breath. HEENT: Pupils are equal, round, and reactive to light. No conjunctival pallor. No scleral icterus. Nares are patent. Oropharynx is clear of obstruction. Moist mucous membranes. NECK: Trachea midline. No thyromegaly. LYMPHATICS: No cervical lymphadenopathy. No supraclavicular lymphadenopathy. RESPIRATORY: A very "tight" exam with inspiratory and expiratory wheezes that predominate. It is difficult to determine if the patient has clear rales. No rhonchi are noted though. The patient has a quite labored respiratory effort. CARDIOVASCULAR: Regular rate and rhythm. No murmurs, rubs, or gallops. No current extremity edema is appreciated by exam. ABDOMEN: Soft, nontender, and nondistended. Normal bowel sounds are auscultated throughout. No hepatosplenomegaly. DERMATOLOGICAL: Warm and dry. EXTREMITIES: No pallor. No cyanosis. PSYCHIATRIC: Flat affect. Claims to be in a good mood. She is alert, appropriate. Poorly oriented to details of time, but is oriented to location and seems oriented to recent history. LABORATORY DATA: Brain natriuretic peptide of 763. Troponin of 0.03. INR of 1.4. White blood cell count of 6.2, hemoglobin 10, hematocrit 30, and platelets 271. Sodium 139, potassium 4.4, chloride 108, bicarb 26, BUN 23, creatinine 0.9, and glucose 96. History And Physical [address] [address] NAME: FÉLIX PORTER : 34 STATUS : ADM IN [facility]#: [id number] AGE: 81 ADM/REG DATE : 11/04/16 MR#: [id number] REPORT SERV DATE: 11/04/16 DICTATED BY: LISSETH MCGOWAN DATE: 11/04/16 REPORT STATUS : Draft TRANSCRIBED BY: HAMZAH DATE: 11/04/16 STUDIES: 1. Chest x-ray by my own evaluation shows flat diaphragms, cardiomegaly, and pulmonary edema. 2. EKG by my own evaluation shows atrial ventricular pacing. ASSESSMENT AND PLAN: 1. Hypoxic respiratory failure. Place on BiPAP in the IMCU. Noted respiratory distress. 2. Reactive airway disease with a "tight" exam. Place on IV Solu-Medrol, Duo nebulizers, and doxycycline. 3. Systolic congestive heart failure exacerbation. History of ejection fraction of 45%. Place on IV diuretic. Continue ARB and Coreg. 4. Atrial fibrillation, on Eliquis. APOLLOL/MODJosh Lisseth Mcgowan M.D. / [id number] CC: Ale Fernandez M.D. David Wendt, M.D.
--- NOTE | ~2016-11-03 | DS ---
Discharge Summary [facility] [address] [place]. [address] NAME: FÉLIX PORTER : 34 STATUS : DIS IN PAT#: [id number] AGE: 81 ADM/REG DATE : 11/04/16 MR#: [id number] REPORT SERV DATE: 11/08/16 DICTATED BY: TYLOR COLEMAN DATE: 11/07/16 REPORT STATUS : Draft TRANSCRIBED BY: MODJosh DATE: 11/07/16 ADMISSION DATE: 11/04/2016 DISCHARGE DATE: 11/07/2016 PROCEDURES DONE: 1. On 11/03/2016 chest x-ray: Volume overload or CHF pattern. Increasing consolidation left lower lobe behind the heart may represent pneumonia or atelectasis. 2. On 11/04/2016 chest x-ray: Increased bilateral pulmonary infiltrates/edema as described with probable small left pleural effusion. AICD device in stable condition, stable enlargement of the cardiac silhouette, and stable atherosclerotic changes of the thoracic aorta. 3. On 11/06/2016 chest x-ray PA and lateral. Interval resolution of severe pulmonary edema. Cardiomegaly is unchanged. Residual small bilateral pleural effusions with minimal bibasilar atelectasis. REASON FOR ADMISSION: Shortness of breath. HOSPITAL COURSE: An 81-year-old white female with past medical history of systolic CHF with systolic dysfunction, EF of 55%, atrial fibrillation, AICD, dementia, anxiety, history of breast cancer, aortic stenosis, presenting with shortness of breath. The patient was readmitted for further evaluation of shortness of breath. The patient had an acute on chronic systolic CHF with acute hypoxic respiratory failure. The patient was given diuretics, and at the same time has been on fluid restriction which significantly improved the patient's pulmonary edema. The Heart Failure Team has seen the patient. The patient has been advised to continue with fluid restriction to maintain her lung function. The patient can easily go in a congestive heart failure. During the hospital stay the patient was put on fluid restriction to optimize what level of fluid restriction required in order to prevent CHF. Recommend the patient be on fluid restriction of 2 L per day, and at the same time do daily weights. If the patient gains more than 10 pounds, I advised the primary care/facility MD to start diuresis. DISPOSITION: The patient is feeling fine, no complaint. ACTIVITY: As tolerated. DIET: Regular. DISCHARGE INSTRUCTIONS: The patient to follow with primary care within two weeks' time. DISCHARGE MEDICATIONS: 1. Apixaban 5 mg p.o. daily. 2. Amiodarone 200 mg p.o. daily. 3. BuSpar 5 mg p.o. b.i.d. 4. Coreg 25 mg p.o. b.i.d. 5. Avapro 150 mg p.o. daily. 6. Ativan 1 mg p.o. q.h.s. Discharge Summary [facility] [id number] [place]. [address] NAME: FÉLIX PORTER : 34 STATUS : DIS IN PAT#: [id number] AGE: 81 ADM/REG DATE : 11/04/16 MR#: [id number] REPORT SERV DATE: 11/08/16 DICTATED BY: TYLOR COLEMAN DATE: 11/07/16 REPORT STATUS : Draft TRANSCRIBED BY: HAMZAH DATE: 11/07/16 7. Magnesium 400 mg p.o. daily. 8. Multivitamin one tablet daily. 9. Megace 400 mg p.o. daily. 10.Dulcolax 10 mg p.o. CO daily p.r.n. 11.GenTeal ophthalmic drops p.r.n. for dry eyes p.r.n. 12.Lasix 20 mg p.o. daily p.r.n. 13.Klonopin 0.25 mg p.o. daily p.r.n. 14.Potassium 10 mEq daily. 15.Barrier cream topical daily to sacral p.r.n. 16.Milk of magnesia 30 mL p.o. daily p.r.n. DISCHARGE DIAGNOSES: 1. Shortness of breath secondary to acute on chronic systolic congestive heart failure versus acute hypoxic respiratory failure. 2. Acute on chronic hypoxic respiratory failure. 3. Acute on chronic systolic congestive heart failure, ejection fraction of 55%. 4. Atrial fibrillation, on Xarelto rate controlled. 5. Automatic implantable cardioverter-defibrillator. 6. Dementia. 7. Anxiety. 8. Aortic stenosis. ZEFERINO/HAMZAH Tylor Coleman MD / [id number] CC: MD Selma Priest M.D.
[~2016-11-03 21:45] MED LIST changes: +ATV.5 PO; +ATV1 PO; +BARRIER CREAM TOP; +BISR PR; +BUSPAR5 PO; +GENTEAL 15 ML O15 ML OPH; +KDUR10 PO; +L20 PO; +MEGACEUDL PO; +MOMUD PO; +MULTIVIT/MIN PO; +PACERONE200 MG PO
[2016-11-03 22:27] LABS: BASOPHILS 0.5 %; BASOPHILS ABSOLUTE 0.03 10/3/uL (0.0-0.16); EOSINOPHILS 2.1 %; EOSINOPHILS ABSOLUTE 0.13 10/3/uL (0.0-0.53); HEMOGLOBIN 10.1 g/dL (12.0-16.0); IMMATURE GRANULOCYTES 0.3 %; IMMATURE GRANULOCYTES ABSOLUTE 0.02 10/3/uL (0.0-0.11); LYMPHOCYTES 23.7 %; LYMPHOCYTES ABSOLUTE 1.46 10/3/uL (0.67-4.30); MEAN CORPUS HGB CONC 33.3 g/dL (32.0-36.0); MEAN CORPUSCULAR HEMOGLOB 29.4 pg (26.0-34.0); MEAN CORPUSCULAR VOLUME 88.3 fL (80-100); MEAN PLATELET VOLUME 8.5 fL (9.2-13.0); MONOCYTES 9.1 %; MONOCYTES ABSOLUTE 0.56 10/3/uL (0.21-1.20); NEUTROPHILS 64.3 %; NEUTROPHILS ABSOLUTE 3.95 10/3/uL (2.02-8.40); PLATELET COUNT 271 10/3/uL (150-400); RBC DISTRIBUTION WIDTH 15.9 % (12.0-16.0); RED CELL COUNT 3.43 10/6/uL (4.0-5.6); WHITE BLOOD CELLS 6.2 10/3/uL (4.5-10.5)
[2016-11-03 22:33] LABS: HEMATOCRIT 30.3 % (36.0-48.0); MANUAL DIFF NO %
[2016-11-03 22:35] LABS: INTERNATIONAL NORMAL RATI 1.4 UNITS (-); PARTIAL THROMBO TIME 33.3 SEC (22.5-37.2); PROTIME (NOT ORD) 17.3 SEC (12.0-14.5)
[2016-11-03 22:44] LABS: BUN (BLOOD UREA NITROGEN) 23 MG/DL (6-23); CALCIUM, SERUM 8.9 MG/DL (8.5-10.4); CHEST PAIN PROFILE TAT 0 Hrs 21 Mins; CHLORIDE, SERUM 108 MMOL/L (96-112); CO2 (CARBON DIOXIDE) 26 MMOL/L (24-34); GFR AFRICAN AMERICAN 69 ML/MIN (>=60); GFR NON AFRICAN AMERICAN 60 ML/MIN (>=60); GLUCOSE, SERUM 96 MG/DL (60-99); POTASSIUM, SERUM 4.4 MMOL/L (3.5-5.3); SODIUM, SERUM 139 MMOL/L (135-148); TROPONIN I 0.03 NG/ML (<0.05)
[2016-11-04] MEDS ORDERED: GENTEAL 15 ML O15 ML OPH (01:59)
[2016-11-04] MEDS ORDERED: L20 PO (01:59)
[2016-11-04] MEDS ORDERED: BISR PR (01:59)
[2016-11-04] MEDS ORDERED: ELIQUIS 5 MG TAB5 MG PO (02:00)
[2016-11-04] MEDS ORDERED: KLONOPIN WAF0.25 MG PO (02:00)
[2016-11-04] MEDS ORDERED: MAGOX4 PO (02:01)
[2016-11-04] MEDS ORDERED: MULTIVIT/MIN PO (02:01)
[2016-11-04] MEDS ORDERED: KDUR10 PO (02:02)
[2016-11-04] MEDS ORDERED: MEGACEUDL PO (02:02)
[2016-11-04] MEDS ORDERED: CORDARONE PO ×2 (02:03→02:09)
[2016-11-04] MEDS ORDERED: COREG25 PO (02:04)
[2016-11-04] MEDS ORDERED: BUSPAR5 PO (02:04)
[2016-11-04] MEDS ORDERED: AVAP150 PO (02:04)
[2016-11-04] MEDS ORDERED: BARRIER CREAM TOP ×2 (02:06→02:08)
[2016-11-04] MEDS ORDERED: ATV1 PO (02:08)
[2016-11-04] MEDS ORDERED: MOMUD PO (02:13)
[2016-11-04 03:14] LABS: BE (BASE EXCESS) -5.6 MEQ/L (0 +/- 2.5); CARBOXYHEMOGLOBIN 1.3 % (0-3); DEVICE NRB; HCO3 (ACTUAL BICARBONATE) 21.2 MEQ/L (23-27); HEMOBLOGIN CONTENT 12.2 G/DL (12-16); INSTRUMENT SERIAL # 8087; METHEMOGLOBIN 0.3 % (0-3); O2 CONTENT 14.3 VOL% (18-24); PCO2 (CO2 TENSION) 47 MMHG (35-45); PO2 (O2 TENSION) 59 MMHG (79-93); SAMPLE Arterial; pH 7.28 (7.37-7.43)
[2016-11-04 11:56] LABS: BASOPHILS 0.1 %; BASOPHILS ABSOLUTE 0.01 10/3/uL (0.0-0.16); EOSINOPHILS 0 %; HEMOGLOBIN 10.3 g/dL (12.0-16.0); IMMATURE GRANULOCYTES 0.1 %; IMMATURE GRANULOCYTES ABSOLUTE 0.01 10/3/uL (0.0-0.11); LYMPHOCYTES 10.4 %; LYMPHOCYTES ABSOLUTE 0.72 10/3/uL (0.67-4.30); MEAN CORPUS HGB CONC 33.2 g/dL (32.0-36.0); MEAN CORPUSCULAR HEMOGLOB 29.1 pg (26.0-34.0); MEAN CORPUSCULAR VOLUME 87.6 fL (80-100); MEAN PLATELET VOLUME 9.3 fL (9.2-13.0); MONOCYTES 1.2 %; MONOCYTES ABSOLUTE 0.08 10/3/uL (0.21-1.20); NEUTROPHILS 88.2 %; NEUTROPHILS ABSOLUTE 6.07 10/3/uL (2.02-8.40); PLATELET COUNT 277 10/3/uL (150-400); RBC DISTRIBUTION WIDTH 15.8 % (12.0-16.0); RED CELL COUNT 3.54 10/6/uL (4.0-5.6); WHITE BLOOD CELLS 6.9 10/3/uL (4.5-10.5)
[2016-11-04 12:02] LABS: MANUAL DIFF NO %
[2016-11-04 12:07] LABS: INTERNATIONAL NORMAL RATI 1.6 UNITS (-); PARTIAL THROMBO TIME 33.3 SEC (22.5-37.2); PROTIME (NOT ORD) 19.3 SEC (12.0-14.5)
[2016-11-04 12:18] LABS: A/G RATIO 1.2 (0.7-1.9); ALBUMIN 3.3 G/DL (3.5-5.0); ALKALINE PHOSPHATASE 106 U/L (45-117); BUN (BLOOD UREA NITROGEN) 26 MG/DL (6-23); CALCIUM, SERUM 9.1 MG/DL (8.5-10.4); CHLORIDE, SERUM 106 MMOL/L (96-112); CO2 (CARBON DIOXIDE) 24 MMOL/L (24-34); CPK (IF ELEVATED MB BANDS) 32 U/L (0-200); GFR AFRICAN AMERICAN 61 ML/MIN (>=60); GFR NON AFRICAN AMERICAN 52 ML/MIN (>=60); GLOBULIN 2.8 G/DL (2.5-4.1); POTASSIUM, SERUM 4.3 MMOL/L (3.5-5.3); SGOT(AST) 24 U/L (5-40); SGPT(ALT) 50 U/L (5-65); SODIUM, SERUM 140 MMOL/L (135-148); TOTAL PROTEIN 6.1 G/DL (6.0-8.5); TROPONIN I <0.02 NG/ML (<0.05); ULTRASENSITIVE TSH 0.776 MCIU/ML (0.358-3.740)
[2016-11-04 12:19] LABS: GLUCOSE, SERUM 127 MG/DL (60-99)
[2016-11-05 06:46] LABS: BUN (BLOOD UREA NITROGEN) 47 MG/DL (6-23); CALCIUM, SERUM 8.8 MG/DL (8.5-10.4); CHLORIDE, SERUM 104 MMOL/L (96-112); CO2 (CARBON DIOXIDE) 27 MMOL/L (24-34); CREATININE 1.09 MG/DL (0.55-1.02); GFR AFRICAN AMERICAN 55 ML/MIN (>=60); GFR NON AFRICAN AMERICAN 47 ML/MIN (>=60); GLUCOSE, SERUM 132 MG/DL (60-99); POTASSIUM, SERUM 4.2 MMOL/L (3.5-5.3); SODIUM, SERUM 139 MMOL/L (135-148)
[2016-11-06 06:02] LABS: BASOPHILS 0 %; EOSINOPHILS 1.2 %; EOSINOPHILS ABSOLUTE 0.07 10/3/uL (0.0-0.53); IMMATURE GRANULOCYTES 0.3 %; IMMATURE GRANULOCYTES ABSOLUTE 0.02 10/3/uL (0.0-0.11); LYMPHOCYTES ABSOLUTE 1.38 10/3/uL (0.67-4.30); MEAN CORPUS HGB CONC 34.1 g/dL (32.0-36.0); MEAN CORPUSCULAR HEMOGLOB 29.3 pg (26.0-34.0); MEAN PLATELET VOLUME 9.3 fL (9.2-13.0); MONOCYTES 10.8 %; MONOCYTES ABSOLUTE 0.65 10/3/uL (0.21-1.20); NEUTROPHILS 64.7 %; NEUTROPHILS ABSOLUTE 3.89 10/3/uL (2.02-8.40); PLATELET COUNT 279 10/3/uL (150-400); RBC DISTRIBUTION WIDTH 16.1 % (12.0-16.0); RED CELL COUNT 3.07 10/6/uL (4.0-5.6)
[2016-11-06 06:03] LABS: HEMATOCRIT 26.4 % (36.0-48.0); MANUAL DIFF NO %
[2016-11-06 06:08] LABS: ALBUMIN 2.9 G/DL (3.5-5.0); CHLORIDE, SERUM 104 MMOL/L (96-112); CREATININE 0.85 MG/DL (0.55-1.02); GFR AFRICAN AMERICAN 74 ML/MIN (>=60); GFR NON AFRICAN AMERICAN 64 ML/MIN (>=60); GLOBULIN 2.9 G/DL (2.5-4.1); SGOT(AST) 16 U/L (5-40); SGPT(ALT) 38 U/L (5-65); SODIUM, SERUM 136 MMOL/L (135-148); TOTAL BILIRUBIN 0.9 MG/DL (0-1.2); TOTAL PROTEIN 5.8 G/DL (6.0-8.5)
[2016-11-06 06:11] LABS: ALKALINE PHOSPHATASE 75 U/L (45-117); BUN (BLOOD UREA NITROGEN) 39 MG/DL (6-23); CO2 (CARBON DIOXIDE) 21 MMOL/L (24-34); GLUCOSE, SERUM 96 MG/DL (60-99)
[2016-11-07 06:18] LABS: BASOPHILS 0.2 %; BASOPHILS ABSOLUTE 0.01 10/3/uL (0.0-0.16); EOSINOPHILS 2.2 %; EOSINOPHILS ABSOLUTE 0.11 10/3/uL (0.0-0.53); HEMOGLOBIN 9.9 g/dL (12.0-16.0); IMMATURE GRANULOCYTES 0.6 %; IMMATURE GRANULOCYTES ABSOLUTE 0.03 10/3/uL (0.0-0.11); LYMPHOCYTES 30.6 %; MEAN CORPUS HGB CONC 33.8 g/dL (32.0-36.0); MEAN CORPUSCULAR HEMOGLOB 29.6 pg (26.0-34.0); MEAN CORPUSCULAR VOLUME 87.5 fL (80-100); MEAN PLATELET VOLUME 9.2 fL (9.2-13.0); MONOCYTES 10.8 %; MONOCYTES ABSOLUTE 0.53 10/3/uL (0.21-1.20); NEUTROPHILS 55.6 %; NEUTROPHILS ABSOLUTE 2.72 10/3/uL (2.02-8.40); PLATELET COUNT 292 10/3/uL (150-400); RBC DISTRIBUTION WIDTH 15.6 % (12.0-16.0); RED CELL COUNT 3.35 10/6/uL (4.0-5.6); WHITE BLOOD CELLS 4.9 10/3/uL (4.5-10.5)
[2016-11-07 06:23] LABS: HEMATOCRIT 29.3 % (36.0-48.0); MANUAL DIFF NO %
[2016-11-07 06:46] LABS: A/G RATIO 1.2 (0.7-1.9); ALBUMIN 3.1 G/DL (3.5-5.0); ALKALINE PHOSPHATASE 76 U/L (45-117); CHLORIDE, SERUM 107 MMOL/L (96-112); CO2 (CARBON DIOXIDE) 23 MMOL/L (24-34); CREATININE 0.71 MG/DL (0.55-1.02); GFR AFRICAN AMERICAN 92 ML/MIN (>=60); GFR NON AFRICAN AMERICAN 79 ML/MIN (>=60); GLOBULIN 2.5 G/DL (2.5-4.1); GLUCOSE, SERUM 90 MG/DL (60-99); POTASSIUM, SERUM 4.1 MMOL/L (3.5-5.3); SGOT(AST) 13 U/L (5-40); SGPT(ALT) 35 U/L (5-65); SODIUM, SERUM 140 MMOL/L (135-148); TOTAL BILIRUBIN 0.7 MG/DL (0-1.2); TOTAL PROTEIN 5.6 G/DL (6.0-8.5)
[2016-11-07 06:47] LABS: BUN (BLOOD UREA NITROGEN) 26 MG/DL (6-23); PHOSPHORUS, SERUM 2.7 MG/DL (2.5-4.5)
[2017-03-07] MEDS ORDERED: KLONOPIN WAF0.25 MG PO (21:05)
[2017-03-07] MEDS ORDERED: BUSPAR5 PO (21:05)
[2017-03-07] MEDS ORDERED: CORDARONE PO (21:05)
[2017-03-07] MEDS ORDERED: COREG25 PO (21:05)
[2017-03-07] MEDS ORDERED: AVAP150 PO (21:06)
[2017-03-07] MEDS ORDERED: LEXAPRO5 MG PO (21:06)
[2017-03-07] MEDS ORDERED: L20 PO ×2 (21:06→21:12)
[2017-03-07] MEDS ORDERED: D.O.S.100 MG PO (21:06)
[2017-03-07] MEDS ORDERED: MIRALAX POWDER1 PKT PO (21:07)
[2017-03-07] MEDS ORDERED: MAGOX4 PO (21:07)
[2017-03-07] MEDS ORDERED: KDUR10 PO (21:08)
[2017-03-07] MEDS ORDERED: XARELTO20 MG PO (21:08)
[2017-03-07] MEDS ORDERED: CENTRUM PO (21:08)
[2017-03-07] MEDS ORDERED: X5 PO (21:09)
[2017-03-07] MEDS ORDERED: ALBUTEROL0.083 % INH (21:09)
[2017-03-07] MEDS ORDERED: BAZA CREAM TOP (21:10)
[2017-03-07] MEDS ORDERED: BION TEARS OPH (21:10)
[2017-03-07] MEDS ORDERED: BISR PR (21:11)
[2017-03-07] MEDS ORDERED: ZOFRAN4 PO (21:12)
[2017-03-07] MEDS ORDERED: MOMUD PO (21:12)
== END 2016-11-07 18:16 | DRG 291 ==
LOC: ER 21:45 → IMCU 11-04 02:49 → 7NO 11-04 18:15
PROVIDERS: Hospitalist; Internal Medicine; Nurse Practitioner Acute Care
PROC: 5A09457 Assistance with Respiratory Ventilation, 24-96 Consecutive Hours, Continuous Positive Airway Pressure (ICD-10-PCS; principal; 2016-11-04)
DX: I50.23 Acute on chronic systolic (congestive) heart failure (principal); J96.21 Acute and chronic respiratory failure with hypoxia; F03.90 Unspecified dementia, unspecified severity, without behavioral disturbance, psychotic disturbance, mood disturbance, and anxiety; I48.2 Chronic atrial fibrillation; F42.9 Obsessive-compulsive disorder, unspecified; Z86.718 Personal history of other venous thrombosis and embolism; Z85.3 Personal history of malignant neoplasm of breast; Z79.01 Long term (current) use of anticoagulants; Z95.810 Presence of automatic (implantable) cardiac defibrillator; Z88.0 Allergy status to penicillin; Z88.1 Allergy status to other antibiotic agents
CPT/HCPCS: 36600; 71010; 71020; 80048; 80053; 82550; 82805; 83735; 83880; 84100; 84443; 84484; 85025; 85610; 85730; 87641; 93005; 94640; 94660; 97161-GP; 99285; A9270-GY; G8978-CI-GP; G8979-CI-GP; G8980-CI-GP; J2920; J2930

== ENCOUNTER 2016-11-20 04:15 | Inpatient (IN) | payer MEDICARE, OTHER ==
--- NOTE | ~2016-11-20 | HP ---
History And Physical [address] [place]. [address] NAME: FÉLIX PORTER : 34 STATUS : ADM IN PAT#: [id number] AGE: 81 ADM/REG DATE : 11/20/16 MR#: [id number] REPORT SERV DATE: 11/20/16 DICTATED BY: LISSETH MCGOWAN DATE: 11/20/16 REPORT STATUS : Draft TRANSCRIBED BY: MODL DATE: 11/20/16 DATE OF ADMISSION: 11/20/2016 CHIEF COMPLAINT: 81-year-old female presenting with shortness of breath. HISTORY OF PRESENT ILLNESS: The patient's history was obtained through careful interview with the patient, coupled with review of [facility] medical records and medical records obtained from [facility] in [place]. The patient, for about 24 hours, has had increasing shortness of breath, has become gradually debilitating. She describes dyspnea on exertion, orthopnea, paroxysmal nocturnal dyspnea, having to sit straight up to catch her breath. She has had a nonproductive cough, increasing chest discomfort. It is felt bilaterally but the left side is more pronounced. It has a sharp discomfort at the base of the lungs exacerbated by coughing and breathing, 10/10 severity. She has noticed no lower extremity edema. No abdominal pain or swelling. No nausea or vomiting. No fevers or chills. No change of bowel or bladder habit. REVIEW OF SYSTEMS: Otherwise, a 14-point review of systems was obtained and was negative. PAST MEDICAL HISTORY: 1. Atrial fibrillation. Followed by Dr. Osborne. 2. AICD/pacer placement. 3. Congestive heart failure. 4. Pneumonia. 5. Dementia. 6. Anxiety, OCD. 7. Breast cancer. 8. Aortic stenosis. 9. Subdural hematoma in 2015 with right encephalomalacia. 10.DVT. 11.Systolic congestive heart failure. Ejection fraction of 45%. Negative catheterization of the heart in 2003. 12.Colon polyps. Seen by Dr. Singh. PAST SURGICAL HISTORY: 1. AICD/pacer placement. 2. Appendectomy. 3. Hysterectomy. 4. Partial colectomy for adenoma. 5. Hemorrhoidectomy. History And Physical [address] [address] NAME: FÉLIX PORTER : [birth year] STATUS : ADM IN [facility]#: [id number] AGE: 81 ADM/REG DATE : 11/20/16 MR#: [id number] REPORT SERV DATE: 11/20/16 DICTATED BY: LISSETH MCGOWAN DATE: 11/20/16 REPORT STATUS : Draft TRANSCRIBED BY: HAMZAH DATE: 11/20/16 CODE STATUS: DNR. ALLERGIES: PENICILLIN, LOPID, BENADRYL, LEVAQUIN, VASOTEC. SOCIAL HISTORY: No tobacco abuse. No alcohol abuse. Became a in 1984. Retired from working at a [employer]. Lives at [facility] in [place]. FAMILY HISTORY: Mother with breast cancer. Sibling with lung cancer. A strong family history of heart disease. CURRENT MEDICATIONS: Include amiodarone 200 mg p.o. b.i.d., Eliquis 5 mg p.o. b.i.d., bisacodyl, BuSpar 5 mg p.o. b.i.d., Coreg 25 mg p.o. b.i.d., Klonopin 0.25 mg p.o. b.i.d., Lasix 20 mg daily, Avapro 150 mg daily, Ativan 1 mg at bedtime, magnesium, Megace, milk of magnesia, multivitamin, potassium 10 mEq daily, barrier cream, Tubersol. PHYSICAL EXAMINATION: VITAL SIGNS: Temperature 98.0, pulse 78, blood pressure 186/94, respiratory rate 20, O2 saturation 85% on room air. GENERAL: An ill-appearing female, in evidence of distress secondary to cough and shortness of breath. HEENT: Pupils equal, round, and reactive to light. No conjunctival pallor. No scleral icterus. Nares are patent. Oropharynx is clear of obstruction. Moist mucous membranes. NECK: Trachea midline. No thyromegaly. LYMPH: No cervical lymphadenopathy. No supraclavicular lymphadenopathy. RESPIRATORY: The patient has wet rales that predominate dullness to percussion suggest moderate sized bilateral pleural effusions symmetrically. No rhonchi. No wheezes. A very labored respiratory effort. CARDIOVASCULAR: Regular rate and rhythm. Paced on the monitor. No murmurs, rubs, or gallops. No current extremity edema is appreciated. ABDOMEN: Distended by examination. No tympanic resonance on percussion. Nontender throughout. No hepatosplenomegaly. DERMATOLOGICAL: Warm and dry extremities. No pallor. No cyanosis. PSYCHIATRIC: Normal affect. Good mood. Alert appropriate. Poorly oriented to details of time, location, and recent history. LABORATORY DATA: White blood count 8.4, hemoglobin 10, hematocrit 30, platelets 267. Sodium 139, potassium 3.8, chloride 107, bicarb 26, BUN 17, creatinine 0.74, glucose 99. Brain natriuretic peptide 1471. Troponin 0.03. INR 1.7. Liver enzymes within normal limits. ABG demonstrates pH 7.49, a PaCO2 of 29, a PaO2 of 45, and a bicarb of 22 on room air. STUDIES: 1. Chest x-ray by my own evaluation shows bilateral pulmonary edema diffusely, cardiomegaly, bilateral pleural effusions. 2. EKG by my own evaluation shows atrial ventricular pacing. ASSESSMENT AND PLAN: 1. Systolic congestive heart failure. Ejection fraction 45%. Place on IV Lasix, History And Physical [address] [address] NAME: FÉLIX PORTER : 34 STATUS : ADM IN [facility]#: [id number] AGE: 81 ADM/REG DATE : 11/20/16 MR#: [id number] REPORT SERV DATE: 11/20/16 DICTATED BY: LISSETH MCGOWAN DATE: 11/20/16 REPORT STATUS : Draft TRANSCRIBED BY: MODJosh DATE: 11/20/16 nitroglycerin paste, ARB, Coreg. 2. Hypoxic respiratory failure. Provide supportive care. 3. DNR status. Do not intubate. No CPR. 4. Atrial fibrillation, on Eliquis. Check telemetry. 5. History of subdural hematoma in 2014 with right-sided residual encephalomalacia. 6. Pacemaker. We will interrogate. KPL/MODL Lisseth Mcgowan M.D. / [id number] CC: Ale Yusuf M.D. David Wendt, M.D.
--- NOTE | ~2016-11-20 | DS ---
Discharge Summary [facility] [address] [facility] [place]. [address] NAME: FÉLIX PORTER : 34 STATUS : DIS IN PAT#: [id number] AGE: 81 ADM/REG DATE : 11/20/16 MR#: [id number] REPORT SERV DATE: 11/23/16 DICTATED BY: JOHN SKELTON DATE: 11/23/16 REPORT STATUS : Draft TRANSCRIBED BY: MODL DATE: 11/23/16 ADMISSION DATE: 11/20/2016 DISCHARGE DATE: 11/23/2016 DISCHARGE DIAGNOSES: 1. Systolic congestive heart failure, acute exacerbation with baseline ejection fraction of 45%. 2. Hypoxic respiratory failure secondary to above. 3. Flash pulmonary edema. 4. Uncontrolled anxiety. 5. Atrial fibrillation. 6. History of subdural hematoma. 7. Pacemaker. 8. DO NOT RESUSCITATE status. CONSULTANTS: None. PROCEDURES: None. HOSPITAL COURSE: This is an 81-year-old lady who was admitted to the hospital with acute on chronic congestive heart failure exacerbation as well as flash pulmonary edema. For details, please refer to excellent H and P by Dr. Preston Carver. In summary, the patient was admitted and was treated appropriately with IV Lasix diuresis. The patient responded to the therapy well and showed progressive clinical improvement. It was apparent after discussing extensively with the patient's son that it is really anxiety attacks that really get out of control, and the patient subsequently developed acute and uncontrolled atrial fibrillation which then leads to flash pulmonary edema and congestive heart failure. Even during the hospital stay, it was very apparent that the patient was suffering from uncontrolled anxiety. It appears that the patient has developed worsening anxiety and depression since about six months ago when she had a hemorrhagic stroke, and from then on, the patient had poor quality of life compared to prior to the stroke. It was strongly advised that the patient be seen by a psychiatrist as an outpatient. In the meantime, I escalated up her anxiety medication to Xanax 0.5 mg p.o. q.6 hours p.r.n. to break the anxiety cycle. By the third day of the hospital stay, it appears the patient was getting over diuresed with worsening renal function and thus the patient was transitioned back to p.o. diuretics. The patient was to be discharged when the patient developed acute hypotension with blood pressures 70s/40s requiring a 500 mL fluid bolus. The patient was monitored one more night to monitor her blood pressures which remained good. The patient is now being [facility]. Also of note, prior to discharge today, the patient developed a vasovagal syncopal episode while she was having a bowel movement. The patient was monitored after the syncopal episode for several hours to make sure the patient does not have any further episodes. The patient's telemetry as well as vital signs remained stable after the vasovagal syncopal episode, and thus she is still being discharged back to the [facility]. [facility] destination [facility]. DISCHARGE MEDICATIONS: No changes except for addition of Xanax 0.5 mg p.o. q.6 hours p.r.n. Discharge Summary [address] [place]. [address] NAME: FÉLIX PORTER : [birth year] STATUS : DIS IN PAT#: [id number] AGE: 81 ADM/REG DATE : 11/20/16 MR#: [id number] REPORT SERV DATE: 11/23/16 DICTATED BY: JOHN SKELTON DATE: 11/23/16 REPORT STATUS : Draft TRANSCRIBED BY: HAMZAH DATE: 11/23/16 FOLLOWUP: 1. Please follow up with PCP in the next one to two weeks. 2. Also, please follow up with a psychiatrist as soon as possible. A total of 25 minutes spent in coordinating this patient's discharge today. DICTATED BY: John Skelton MD [facility]/HAMZAH John Skelton MD / [id number] CC: MD Selma Wynn M.D.
[2016-11-20 04:08] LABS: ALLENS TEST Pos; INSTRUMENT SERIAL # 8087; OPERATOR ID 17589; PCO2 (CO2 TENSION) 29 MMHG (35-45); PO2 (O2 TENSION) 46 MMHG (79-93); SAMPLE Arterial
[2016-11-20 04:13] LABS: BASOPHILS 0.5 %; BASOPHILS ABSOLUTE 0.04 10/3/uL (0.0-0.16); EOSINOPHILS 1.8 %; EOSINOPHILS ABSOLUTE 0.15 10/3/uL (0.0-0.53); HEMATOCRIT 29.9 % (36.0-48.0); HEMOGLOBIN 10.1 g/dL (12.0-16.0); IMMATURE GRANULOCYTES 0.4 %; IMMATURE GRANULOCYTES ABSOLUTE 0.03 10/3/uL (0.0-0.11); LYMPHOCYTES 15.7 %; LYMPHOCYTES ABSOLUTE 1.32 10/3/uL (0.67-4.30); MEAN CORPUS HGB CONC 33.8 g/dL (32.0-36.0); MEAN CORPUSCULAR HEMOGLOB 30.1 pg (26.0-34.0); MEAN PLATELET VOLUME 9.3 fL (9.2-13.0); MONOCYTES 8.6 %; MONOCYTES ABSOLUTE 0.72 10/3/uL (0.21-1.20); NEUTROPHILS ABSOLUTE 6.15 10/3/uL (2.02-8.40); PLATELET COUNT 267 10/3/uL (150-400); RED CELL COUNT 3.36 10/6/uL (4.0-5.6)
[2016-11-20 04:15] LABS: ER CBC TAT 0 Hrs 09 Mins; MANUAL DIFF NO %; WHITE BLOOD CELLS 8.4 10/3/uL (4.5-10.5)
[~2016-11-20 04:15] MED LIST changes: +KLONOPIN WAF0.25 MG PO
[2016-11-20 04:20] LABS: INTERNATIONAL NORMAL RATI 1.4 UNITS (-); PARTIAL THROMBO TIME 36.5 SEC (22.5-37.2); PROTIME (NOT ORD) 17.3 SEC (12.0-14.5)
[2016-11-20 04:29] LABS: CALCIUM, SERUM 9.1 MG/DL (8.5-10.4); CHEST PAIN PROFILE TAT 0 Hrs 23 Mins; CHLORIDE, SERUM 107 MMOL/L (96-112); CO2 (CARBON DIOXIDE) 26 MMOL/L (24-34); CREATININE 0.74 MG/DL (0.55-1.02); GFR AFRICAN AMERICAN 87 ML/MIN (>=60); GFR NON AFRICAN AMERICAN 75 ML/MIN (>=60); GLUCOSE, SERUM 99 MG/DL (60-99); POTASSIUM, SERUM 3.8 MMOL/L (3.5-5.3); SODIUM, SERUM 139 MMOL/L (135-148); TROPONIN I 0.03 NG/ML (<0.05)
[2016-11-20 04:31] LABS: BUN (BLOOD UREA NITROGEN) 17 MG/DL (6-23)
[2016-11-20 04:36] LABS: ALBUMIN 3.6 G/DL (3.5-5.0); DIRECT BILIRUBIN 0.2 MG/DL (0.0-0.4); TOTAL PROTEIN 6.4 G/DL (6.0-8.5)
[2016-11-20 04:37] LABS: INDIRECT BILIRUBIN(NOT ORDER) 1.3 MG/DL (0.1-0.9); TOTAL BILIRUBIN 1.5 MG/DL (0-1.2)
[2016-11-20] MEDS ORDERED: TUBERSOL (05:38)
[2016-11-20 11:54] LABS: BASOPHILS 0.4 %; BASOPHILS ABSOLUTE 0.03 10/3/uL (0.0-0.16); EOSINOPHILS 0.3 %; EOSINOPHILS ABSOLUTE 0.02 10/3/uL (0.0-0.53); HEMATOCRIT 28.1 % (36.0-48.0); HEMOGLOBIN 9.5 g/dL (12.0-16.0); IMMATURE GRANULOCYTES 0.1 %; IMMATURE GRANULOCYTES ABSOLUTE 0.01 10/3/uL (0.0-0.11); MANUAL DIFF NO %; MEAN CORPUS HGB CONC 33.8 g/dL (32.0-36.0); MEAN CORPUSCULAR HEMOGLOB 29.6 pg (26.0-34.0); MEAN CORPUSCULAR VOLUME 87.5 fL (80-100); MEAN PLATELET VOLUME 9.4 fL (9.2-13.0); MONOCYTES 7.3 %; MONOCYTES ABSOLUTE 0.53 10/3/uL (0.21-1.20); NEUTROPHILS 80.9 %; NEUTROPHILS ABSOLUTE 5.91 10/3/uL (2.02-8.40); PLATELET COUNT 231 10/3/uL (150-400); RED CELL COUNT 3.21 10/6/uL (4.0-5.6); WHITE BLOOD CELLS 7.3 10/3/uL (4.5-10.5)
[2016-11-20 12:03] LABS: INTERNATIONAL NORMAL RATI 1.7 UNITS (-); PARTIAL THROMBO TIME 37.1 SEC (22.5-37.2); PROTIME (NOT ORD) 19.4 SEC (12.0-14.5)
[2016-11-20 12:12] LABS: A/G RATIO 1.2 (0.7-1.9); ALBUMIN 3.3 G/DL (3.5-5.0); ALKALINE PHOSPHATASE 103 U/L (45-117); BUN (BLOOD UREA NITROGEN) 17 MG/DL (6-23); CALCIUM, SERUM 8.8 MG/DL (8.5-10.4); CHLORIDE, SERUM 103 MMOL/L (96-112); CO2 (CARBON DIOXIDE) 28 MMOL/L (24-34); CPK 25 U/L (0-200); CREATININE 0.86 MG/DL (0.55-1.02); GFR AFRICAN AMERICAN 73 ML/MIN (>=60); GFR NON AFRICAN AMERICAN 63 ML/MIN (>=60); GLOBULIN 2.7 G/DL (2.5-4.1); POTASSIUM, SERUM 3.3 MMOL/L (3.5-5.3); SGOT(AST) 18 U/L (5-40); SGPT(ALT) 49 U/L (5-65); SODIUM, SERUM 136 MMOL/L (135-148); TOTAL BILIRUBIN 1.2 MG/DL (0-1.2); TROPONIN I 0.03 NG/ML (<0.05)
[2016-11-20 12:13] LABS: CK-MB 1.3 NG/ML; GLUCOSE, SERUM 126 MG/DL (60-99)
[2016-11-21 06:56] LABS: BASOPHILS 0.9 %; BASOPHILS ABSOLUTE 0.04 10/3/uL (0.0-0.16); EOSINOPHILS 2.5 %; EOSINOPHILS ABSOLUTE 0.11 10/3/uL (0.0-0.53); HEMATOCRIT 27.7 % (36.0-48.0); HEMOGLOBIN 9.2 g/dL (12.0-16.0); LYMPHOCYTES 28.9 %; LYMPHOCYTES ABSOLUTE 1.29 10/3/uL (0.67-4.30); MEAN CORPUS HGB CONC 33.2 g/dL (32.0-36.0); MEAN CORPUSCULAR HEMOGLOB 29.7 pg (26.0-34.0); MEAN CORPUSCULAR VOLUME 89.4 fL (80-100); MEAN PLATELET VOLUME 9.4 fL (9.2-13.0); MONOCYTES 9.6 %; MONOCYTES ABSOLUTE 0.43 10/3/uL (0.21-1.20); NEUTROPHILS 58.1 %; PLATELET COUNT 216 10/3/uL (150-400); RBC DISTRIBUTION WIDTH 16.3 % (12.0-16.0); WHITE BLOOD CELLS 4.5 10/3/uL (4.5-10.5)
[2016-11-21 07:05] LABS: MANUAL DIFF NO %
[2016-11-21 07:11] LABS: CHLORIDE, SERUM 105 MMOL/L (96-112); CO2 (CARBON DIOXIDE) 30 MMOL/L (24-34); CREATININE 1.09 MG/DL (0.55-1.02); GFR AFRICAN AMERICAN 55 ML/MIN (>=60); GFR NON AFRICAN AMERICAN 47 ML/MIN (>=60); POTASSIUM, SERUM 3.8 MMOL/L (3.5-5.3); SODIUM, SERUM 141 MMOL/L (135-148)
[2016-11-21 07:23] LABS: BUN (BLOOD UREA NITROGEN) 25 MG/DL (6-23); GLUCOSE, SERUM 91 MG/DL (60-99)
[2016-11-22 05:52] LABS: CALCIUM, SERUM 9.1 MG/DL (8.5-10.4); CHLORIDE, SERUM 104 MMOL/L (96-112); CO2 (CARBON DIOXIDE) 30 MMOL/L (24-34); CREATININE 1.43 MG/DL (0.55-1.02); GFR AFRICAN AMERICAN 39 ML/MIN (>=60); GFR NON AFRICAN AMERICAN 34 ML/MIN (>=60); GLUCOSE, SERUM 97 MG/DL (60-99); SODIUM, SERUM 141 MMOL/L (135-148)
[2016-11-22 05:53] LABS: BUN (BLOOD UREA NITROGEN) 42 MG/DL (6-23)
[2016-11-23] MEDS ORDERED: LEXAPRO5 MG PO (16:53)
[2016-11-23] MEDS ORDERED: REST15 PO (16:54)
[2016-11-23] MEDS ORDERED: X5 PO (16:58)
[2017-03-07] MEDS ORDERED: KLONOPIN WAF0.25 MG PO (21:05)
[2017-03-07] MEDS ORDERED: COREG25 PO (21:05)
[2017-03-07] MEDS ORDERED: BUSPAR5 PO (21:05)
[2017-03-07] MEDS ORDERED: CORDARONE PO (21:05)
[2017-03-07] MEDS ORDERED: LEXAPRO5 MG PO (21:06)
[2017-03-07] MEDS ORDERED: AVAP150 PO (21:06)
[2017-03-07] MEDS ORDERED: D.O.S.100 MG PO (21:06)
[2017-03-07] MEDS ORDERED: L20 PO ×2 (21:06→21:12)
[2017-03-07] MEDS ORDERED: MAGOX4 PO (21:07)
[2017-03-07] MEDS ORDERED: MIRALAX POWDER1 PKT PO (21:07)
[2017-03-07] MEDS ORDERED: KDUR10 PO (21:08)
[2017-03-07] MEDS ORDERED: XARELTO20 MG PO (21:08)
[2017-03-07] MEDS ORDERED: CENTRUM PO (21:08)
[2017-03-07] MEDS ORDERED: X5 PO (21:09)
[2017-03-07] MEDS ORDERED: ALBUTEROL0.083 % INH (21:09)
[2017-03-07] MEDS ORDERED: BAZA CREAM TOP (21:10)
[2017-03-07] MEDS ORDERED: BION TEARS OPH (21:10)
[2017-03-07] MEDS ORDERED: BISR PR (21:11)
[2017-03-07] MEDS ORDERED: MOMUD PO (21:12)
[2017-03-07] MEDS ORDERED: ZOFRAN4 PO (21:12)
== END 2016-11-23 17:00 | DRG 291 ==
LOC: ER 04:15 → 6NO 05:52
PROVIDERS: Emergency Medicine; Hospitalist; Internal Medicine
PROC: 4B02XTZ Measurement of Cardiac Defibrillator, External Approach (ICD-10-PCS; principal; 2016-11-20)
DX: I50.23 Acute on chronic systolic (congestive) heart failure (principal); J96.01 Acute respiratory failure with hypoxia; N17.9 Acute kidney failure, unspecified; F41.9 Anxiety disorder, unspecified; F42.9 Obsessive-compulsive disorder, unspecified; I35.0 Nonrheumatic aortic (valve) stenosis; I48.2 Chronic atrial fibrillation; Z95.810 Presence of automatic (implantable) cardiac defibrillator; Z87.01 Personal history of pneumonia (recurrent); Z90.710 Acquired absence of both cervix and uterus; Z90.49 Acquired absence of other specified parts of digestive tract; Z86.010 Personal history of colon polyps; Z66 Do not resuscitate; Z88.0 Allergy status to penicillin; Z88.1 Allergy status to other antibiotic agents; Z79.02 Long term (current) use of antithrombotics/antiplatelets; Z85.3 Personal history of malignant neoplasm of breast
CPT/HCPCS: 36600; 71010; 80048; 80053; 80076; 82550; 82553; 82805; 83735; 83880; 84132; 84145; 84443; 84484; 85025; 85610; 85730; 87040; 93005; 99285; A9270-GY; J1940; J2405